=== PATIENT | female | born 1970 | race Asian ===

== ENCOUNTER 2018-05-26 21:33 | Emergency (ER) | payer SELFPAY ==
[~2018-05-26] VITALS: Ht 167.6 cm; Wt 65.8 kg
[2018-05-26 22:36] LABS: Basophils # (auto) 0 uL; Basophils % (auto) 0.4 % (0.0-2.0); Eosinophils # (auto) 0.2 uL; Eosinophils % (auto) 1.8 % (0.0-7.0); Hematocrit 41.3 % (36.0-46.0); Hemoglobin 13.5 g/dL (12.2-16.2); Lymphocytes # (auto) 1.5 uL; Lymphocytes % (auto) 13.2 % (10.0-50.0); Mean Corpuscular Hemoglobin 31.7 pg (28.0-32.0); Mean Corpuscular Hgb Conc. 32.8 g/dL (32.0-36.0); Mean Corpuscular Volume 96.5 fL (80.0-100.0); Monocytes # (auto) 0.4 uL; Neutrophils % (auto) 80.6 % (37.0-80.0); Platelet Count (auto) 218 10^3/uL (140-450); Red Blood Cells 4.28 10^6/uL (4.0-5.20); Red Cell Distribution Width 12.9 % (11.8-14.3); White Blood Cell 11.1 10^3/uL (4.4-10.8)
[2018-05-26 22:50] LABS: Urine Bacteria NONE SEEN /hpf (None Seen); Urine Blood 2+ /uL (Negative); Urine Mucus FEW (None Seen); Urine Specific Gravity 1.034 (1.001-1.035); Urine WBC 5 /hpf (0 - 5)
[2018-05-26 22:53] LABS: Albumin 4.3 g/dL (3.4-5.0); Calcium 8.6 mg/dL (8.5-10.1); Magnesium 2.3 mg/dL (1.6-2.6); Potassium 3.6 mmol/L (3.5-5.1)
[2018-05-26 22:56] LABS: Bilirubin, Total 0.6 mg/dL (0.2-1.0); Total Protein 7.7 g/dL (6.4-8.2)
[2018-05-27] MEDS: SODIUM CHLORIDE 0.9% 1,000 ML IVB ONE (07:46)
[2018-05-27] MEDS: KETOROLAC TROMETH 30 MG/ML 1ML VIAL IV ONE (07:46)
[2018-05-27] MEDS: PROMETHAZINE HCL 25 MG/ML 1ML IV PRN (07:46)
[2018-05-27 10:48] VITALS: BP 119/82
== END 2018-05-27 11:10 | disposition home or self-care (01) ==
LOC: ER 21:39
DX: N13.2 Hydronephrosis with renal and ureteral calculous obstruction (principal); R73.9 Hyperglycemia, unspecified
CPT/HCPCS: 36415; 74176; 80053; 81001; 81025; 82150; 83690; 83735; 84702; 85025; 96374; 96375; 99284; J1885; J2550; J7030